=== PATIENT | female | born 1985 | race Caucasian/White ===

== ENCOUNTER 2020-03-31 08:28 | Emergency (ER) | payer MEDICAID ==
[2020-03-31] MEDS ORDERED: CYCLOBENZAPRINE HCL 10 MG TABLET PO ONE (09:23)
[2020-03-31] MEDS ORDERED: KETOROLAC TROMETHAMINE INJ/PF 30 MG/1 ML SDV IV ONE (09:23)
--- NOTE | 2020-03-31 09:30 | ER Document Report ---
ED General - General Stated Complaint: HEAD,NECK PAIN Time Seen by Provider: 03/31/20 09:10 Primary Care Provider: YAMILETH GARZA PA [Primary Care Provider] - Follow up as needed TRAVEL OUTSIDE OF THE [place] IN LAST 30 DAYS: No - HPI Notes: Patient is a 34-year-old female who gave via vaginal delivery on 03/26/2020, who presents to the emergency department for evaluation of pain in the right side of her neck and the inability to turn her head. She states that yesterday she noticed some "blisters" on the side of her tongue. Today she states that she really could not sleep because she was having pain in the right side of her neck. Now she cannot turn her head. I asked her about a headache, she states is really difficult to discern not from the neck pain that she is having. Patient states that she had some high blood pressures during her . She denies any seizures, no admission for magnesium. She was not on any medications for this. She was not induced, was allowed to go into labor spontaneously. She states that she has not been checking her blood pressure at home. She states that she did have some edema on the in her legs. She states that she followed instructions to just elevate her legs and it went down. She denies any edema since then. No visual changes. Moving her arms and legs without difficulty. No other acute complaints or concerns. She currently puts her pain at a 5 out of 5. She states she tried Tylenol, ibuprofen, and a heating pad without any relief. - Related Data Allergies/Adverse Reactions: rizatriptan benzoate [From [facility]] Allergy (Severe, Verified 09/07/12 19:54) Home Medications: vitamin, Protonix, Effexor Past Medical History - General Information source: Patient - Social History Smoking Status: Never Smoker Drug Abuse: None Family History: Reviewed & Not Pertinent, CAD, DM, Hypertension Neurological Medical History: Reports: Hx Migraine GI Medical History: Reports: Hx Gastroesophageal Reflux Disease Psychiatric Medical History: Reports: Hx Anxiety, Hx Depression - Immunizations Immunizations up to date: Yes Hx Diphtheria, Pertussis, Tetanus Vaccination: Yes Review of Systems - Review of Systems Constitutional: No symptoms reported EENT: See HPI Cardiovascular: No symptoms reported Respiratory: No symptoms reported Gastrointestinal: No symptoms reported Genitourinary: No symptoms reported Female Genitourinary: See HPI Musculoskeletal: See HPI Skin: No symptoms reported Neurological/Psychological: No symptoms reported -: Yes All other systems reviewed and negative Physical Exam - Vital signs Vitals: Temp Pulse Resp BP Pulse Ox 97.9 F 93 18 154/95 H 98 03/31/20 08:42 03/31/20 08:42 03/31/20 08:42 03/31/20 08:42 03/31/20 08:42 - Notes Notes: Vital signs reviewed, please refer to chart. Head is normocephalic, atraumatic. Pupils equal round, reactive to light. Oral mucosa is moist. Examination of the tongue yields a small aphthous ulcer on the right lateral margin without vesicles. No other intraoral lesions. Uvula is midline. Examination of the cervical spine yields no obvious deformity. No midline tenderness or step-off. She has paraspinal musculature tenderness throughout the right side of the cervical spine with significant tenderness over the strap muscles working forward anteriorly to this sternocleidomastoid. No overlying skin changes. Heart is regular rate and rhythm. Lungs are clear to auscultation bilaterally. Abdomen is soft, nontender, normoactive bowel sounds throughout. Extremities without cyanosis, clubbing. Posterior calves are nontender. Peripheral pulses are equal. Skin is warm and dry. Patient is awake, alert, oriented x3. Cranial nerves II - XII are grossly intact without focal neurological deficits. Strength is plus 5 out of 5 bilateral upper and lower extremities. Sensation is intact. Reflexes symmetrical. Intact [id number], rapid alternating movements, [id number]. Course - Re-evaluation Re-evalutation: 03/31/20 09:31 Patient presents to the emergency department for evaluation. Because of her recent leg edema and elevated pressures, we will get some blood work. I suspect that this patient has musculoskeletal pain and spasm which is causing her inability to move her head. She not showing any signs of infectious etiology. She has no edema at this time. Her blood pressure is elevated, I think likely secondary to pain. The patient is breast-feeding. Normally I would medicate with Valium, but I do not feel comfortable doing that at this time. I will go ahead and start with Flexeril and Toradol. Awaiting blood work. Patient is currently stable, we will continue to monitor. 03/31/20 11:19 Patient is feeling markedly improved. I will send her home with a prescription for Flexeril. Moist heat to the painful area. Labs are unremarkable. Her blood pressures, while still high, have significantly improved. Current blood p ressure 148/91. We will have her follow-up with OB as scheduled on Thursday. She is to return to the ED with worsening. - Vital Signs Vital signs: Temp Pulse Resp BP Pulse Ox 97.9 F 93 18 154/101 H 97 03/31/20 08:42 03/31/20 08:42 03/31/20 09:14 03/31/20 09:14 03/31/20 10:11 - Laboratory Result Diagrams: 03/31/20 09:31 03/31/20 10:18 Laboratory results interpreted by me: 03/31/20 03/31/20 03/31/20 09:31 10:07 10:18 Lymph % (Auto) 12.9 L Seg Neutrophils % 81.1 H Alkaline Phosphatase 169 H Urine Protein 100 H Urine Blood LARGE H Ur Leukocyte Esterase TRACE H Discharge - Discharge Clinical Impression: Neck muscle spasm Condition: Stable Disposition: HOME, SELF-CARE Instructions: Muscle Relaxers ([facility]) Additional Instructions: Moist heat to the painful area. Take muscle relaxer as prescribed, please watch for dizziness and drowsiness with this medication. I would also recommend that you take ibuprofen [id number]. Follow-up with OB as scheduled on Thursday. If you develop worsening or new concerning symptoms of any sort, please return immediately to the emergency department for evaluation. Referrals: YAMILETH GARZA PA [Primary Care Provider] - Follow up as needed
[2020-03-31 10:10] LABS: ABSOLUTE EOSINOPHILS # (AUTO) 0.2 10^3/uL (0.0-0.6); ABSOLUTE LYMPHOCYTES (AUTO) 1.1 10^3/uL (0.5-4.7); ABSOLUTE MONOCYTES (AUTO) 0.3 10^3/uL (0.1-1.4); ABSOLUTE NEUT (AUTO) 6.9 10^3/uL (1.7-8.2); BASOPHILS % (AUTO) 0.4 % (0-2); EOSINOPHILS % (AUTO) 1.9 % (0-6); HEMATOCRIT 36.3 % (36.0-47.0); HEMOGLOBIN 12.6 g/dL (12.0-15.5); LYMPHOCYTES % (AUTO) 12.9 % (13-45); MEAN CORPUSCULAR HEMOGLOBIN 32.4 pg (27.0-33.4); MEAN CORPUSCULAR HGB CONC 34.8 g/dL (32.0-36.0); MEAN CORPUSCULAR VOLUME 93 fl (80-97); MONOCYTES % (AUTO) 3.7 % (3-13); PLATELET COUNT 228 10^3/uL (150-450); RED BLOOD COUNT 3.91 10^6/uL (3.72-5.28); RED CELL DISTRIBUTION WIDTH 13.6 % (11.5-14.0); SEGMENTED NEUTROPHILS % (AUTO) 81.1 % (42-78); TOTAL CELLS COUNTED % (AUTO) 100 %; WHITE BLOOD COUNT 8.5 10^3/uL (4.0-10.5)
[2020-03-31 10:41] LABS: APPEARANCE,URINE SLIGHTLY-CLOUDY; BILIRUBIN,URINE NEGATIVE (NEGATIVE); COLOR,URINE YELLOW; GLUCOSE, URINE NEGATIVE (NEGATIVE); KETONES,URINE NEGATIVE (NEGATIVE); LEUKOCYTE ESTERASE,URINE TRACE (NEGATIVE); NITRITE,URINE NEGATIVE (NEGATIVE); PROTEIN,URINE 100 mg/dL (NEGATIVE); URINE SPECIFIC GRAVITY 1.011; UROBILINOGEN,URINE NEGATIVE mg/dL (<2.0)
[2020-03-31 10:56] LABS: ALBUMIN 3.6 g/dL (3.5-5.0); ALKALINE PHOSPHATASE 169 U/L (38-126); ANION GAP 9 (5-19); ASPARTATE AMINO TRANSFERASE 32 U/L (14-36); BILIRUBIN,DIRECT 0.2 mg/dL (0.0-0.4); BILIRUBIN,TOTAL 0.6 mg/dL (0.2-1.3); BLOOD UREA NITROGEN 10 mg/dL (7-20); CALCIUM 9.2 mg/dL (8.4-10.2); CARBON DIOXIDE 22 mmol/L (22-30); CHLORIDE 106 mmol/L (98-107); GLUCOSE 92 mg/dL (75-110); POTASSIUM 4.1 mmol/L (3.6-5.0); TOTAL PROTEIN 6.3 g/dL (6.3-8.2)
[2020-03-31 11:49] VITALS: BP 156/85
== END 2020-03-31 11:50 | disposition home or self-care (01) ==
LOC: ER 08:28
DX: O90.89 Other complications of the puerperium, not elsewhere classified (principal); M62.838 Other muscle spasm; M54.2 Cervicalgia; O99.63 Diseases of the digestive system complicating the puerperium; K12.0 Recurrent oral aphthae; O16.5 Unspecified maternal hypertension, complicating the puerperium; O99.345 Other mental disorders complicating the puerperium; F32.9 Major depressive disorder, single episode, unspecified; F41.9 Anxiety disorder, unspecified; Z79.899 Other long term (current) drug therapy; Z88.8 Allergy status to other drugs, medicaments and biological substances
CPT/HCPCS: 99284; 96374; 36415; 85025; 80053; 81001; J3490; J1885

== ENCOUNTER 2020-04-22 07:03 | Emergency (ER) | payer OTHER, MEDICAID ==
--- NOTE | 2020-04-22 08:44 | ER Document Report ---
HPI - HPI Patient complains to provider of: Dental pain Time Seen by Provider: 04/22/20 08:17 Onset/Duration: Persistent Quality of pain: Achy Pain Level: 5 Context: Patient presents complaining of dental pain for the past 3 days. Patient states that she had a previous root canal on the tooth and then it later broke. Patient denies any fever or facial swelling. Patient saw her doctor was placed on penicillin yesterday and she has had 3 doses so far. Associated Symptoms: Other - Dental pain. denies: Fever Exacerbated by: Denies Relieved by: Denies Similar symptoms previously: Yes Recently seen / treated by doctor: Yes - ROS ROS below otherwise negative: Yes Systems Reviewed and Negative: Yes All other systems reviewed and negative - CONSTITUTIONAL Constitutional: DENIES: Fever, Chills - EENT Notes: Dental pain - CARDIOVASCULAR Cardiovascular: DENIES: Chest pain - RESPIRATORY Respiratory: DENIES: Trouble Breathing, Coughing - GASTROINTESTINAL Gastrointestinal: DENIES: Nausea, Patient vomiting - REPRODUCTIVE Reproductive: DENIES: : - DERM Skin Color: Normal Skin Problems: None Past Medical History - General Information source: Patient - Social History Smoking Status: Never Smoker Frequency of alcohol use: None Drug Abuse: None Occupation: None Lives with: Family Family History: Reviewed & Not Pertinent, CAD, DM, Hypertension - Past Medical History Cardiac Medical History: Reports: Hx Hypertension Neurological Medical History: Reports: Hx Migraine GI Medical History: Reports: Hx Gastroesophageal Reflux Disease Psychiatric Medical History: Reports: Hx Anxiety, Hx Depression Past Surgical History: Reports: Hx Breast Surgery - Immunizations Immunizations up to date: Yes Hx Diphtheria, Pertussis, Tetanus Vaccination: Yes Vertical Provider Document - CONSTITUTIONAL Agree With Documented VS: Yes Exam Limitations: No Limitations General Appearance: WD/WN, No Apparent Distress - INFECTION CONTROL TRAVEL OUTSIDE OF THE [place] IN LAST 30 DAYS: No - HEENT HEENT: Atraumatic, Normocephalic Mouth Diagram: 1 - Fracture with decay, no gingival inflammation, no drainable abscess, no trismus - NECK Neck: Normal Inspection, Supple. negative: Lymphadenopathy-Left, Lymphadenopathy-Right - RESPIRATORY Respiratory: Breath Sounds Normal, No Respiratory Distress - CARDIOVASCULAR Cardiovascular: Regular Rate, Regular Rhythm - BACK Back: Normal Inspection - MUSCULOSKELETAL/EXTREMETIES Musculoskeletal/Extremeties: MAEW - NEURO Level of Consciousness: Awake, Alert, Appropriate Motor/Sensory: No Motor Deficit - DERM Integumentary: Warm, Dry, No Rash Course - Re-evaluation Re-evalutation: 04/22/20 08:41 Patient with dental pain despite recent prescription of antibiotics. No drainable abscess at this time, discussed worsening symptoms that patient should return for. Patient encouraged to follow-up with dental provider tomorrow - Vital Signs Vital signs: Temp Pulse Resp BP Pulse Ox 98.0 F 88 16 136/97 H 97 04/22/20 07:13 04/22/20 07:13 04/22/20 07:13 04/22/20 07:13 04/22/20 07:13 Discharge - Discharge Clinical Impression: Toothache Condition: Stable Disposition: HOME, SELF-CARE Instructions: Clindamycin ([facility]), Dentist, Oral Narcotic Medication ([facility]), Toothache ([facility]) Additional Instructions: Return immediately for any new or worsening symptoms Followup with your primary care provider, call tomorrow to make a followup appo intment Continue to alternate Tylenol and ibuprofen to help with your pain relief Prescriptions: Oxycodone HCl [Oxy-Ir 5 mg Tablet] 5 mg PO Q6HP PRN #12 tab PRN Reason: Clindamycin HCl 300 mg PO TID #21 capsule Referrals: YAMILETH GARZA PA [Primary Care Provider] - Follow up as needed
[2020-04-22 09:01] VITALS: BP 138/94
== END 2020-04-22 09:01 | disposition home or self-care (01) ==
LOC: ER 07:03
DX: K02.9 Dental caries, unspecified (principal); K08.89 Other specified disorders of teeth and supporting structures; I10 Essential (primary) hypertension; Z98.890 Other specified postprocedural states
CPT/HCPCS: 99284